=== PATIENT | female | born 1955 | race Caucasian/White ===

== ENCOUNTER 2016-10-25 04:14 | Emergency (ER) | payer OTHER ==
[2016-10-25] MEDS ORDERED: ALBUTEROL 90 MCG/ACT 8GM HFA INHALER As Ordered ONE (05:45)
[2016-10-25] MEDS ORDERED: predniSONE 20 MG TAB As Ordered ONE (05:45)
--- NOTE | 2016-10-25 06:25 | EDDOCDS ---
Physician Documentation [facility] Name: Shayy Richmond Age: 61 yrs Sex: Female : 1955 Arrival Date: 10/25/2016 Time: 04:14 Bed 10 Private MD: Disposition: 10/25/16 05:42 Discharged to Home/Self Care. Impression: Acute bronchitis. - Condition is Stable. - Discharge Instructions: Acute Bronchitis, Viral Infections. - Prescriptions for Prednisone 20 mg Oral Tablet - take 1 tablet by ORAL route once daily for 5 days; 5 tablet. - Medication Reconciliation, Local Pharmacy Hours form. - Follow up: AFSANEH Davis; When: Call to arrange an appointment; Reason: Continuance of care. - Problem is an acute exacerbation. - Symptoms have improved. Historical: - Allergies: Zithromax (Hives); - Home Meds: 1. benazepril 40 mg oral tab 1 tab once daily (Last dose: 10/24/2016) 2. hydrochlorothiazide 25 mg Oral tab 1 tab once daily (Last dose: 10/24/2016) 3. Sertraline 50 mg 150 mg daily (Last dose: 10/24/2016) 4. amlodipine 5 mg Oral tab 1 tab once daily (Last dose: 10/24/2016) 5. Claritin 10 mg Oral tab 1 tab once daily (Last dose: 10/24/2016) 6. Synthroid 125 mcg Oral tab 2 tabs once daily (Last dose: 10/24/2016) 7. Align 4 mg oral cap 1 cap daily (Last dose: 10/24/2016) 8. multivitamin Oral tab 1 tablet daily (Last dose: 10/24/2016) 9. Ambien 10 mg Oral tab 1 tab nightly (Last dose: 10/24/2016) 10. Zanaflex 4 mg Oral tab 2 tabs twice a day (Last dose: 10/24/2016) 11. Iron CR 250 mg Oral cpER daily (Last dose: 10/24/2016) 12. Calcium + Vitamin D 600 mg calcium- 200 unit Oral tab daily (Last dose: 10/24/2016) 13. tramadol 50 mg Oral tab 1 tab every 4-6 hours as needed (Last dose: Unknown) 14. Xanax 1 mg Oral tab 1 tab 3 times per day (Last dose: Unknown) 15. Propranolol Oral 1 tab as needed 16. doxycycline hyclate 100 mg Oral cap 1 cap 2 times per day (Last dose: 10/24/2016) 17. Mucinex DM 30-600 mg oral Tb12 2 tabs every 12 hours (Last dose: 10/24/2016) - PMHx: Hypertension; Anxiety; Depression; Hypothyroidism; - Social history: Smoking status: Patient states was never smoker of tobacco. No barriers to communication noted, The patient speaks fluent Taiwanese, Speaks appropriately for age. - Family history: Not pertinent. - : The pt / caregiver states he / she is not on anticoagulants. Home medication list is obtained from the patient. - Exposure Risk Screening:: None identified. Vital Signs: 10/25 04:28 BP 169 / 90; Pulse 79; Resp 22; Temp 96.3(O); Pulse Ox 92% on R/A; Weight 143.79 kg / kmg1 317 lbs (R); Height 5 ft. 6 in. (167.64 cm) (R); Pain 2/10; 06:02 BP 164 / 89; Pulse 78; Resp 18; Temp 98; Pulse Ox 97% on R/A; Pain 2/10; jp6 04:28 Body Mass Index 51.16 (143.79 kg, 167.64 cm) [facility] [place]DM: 05:00 -Influenza A&B Rapid Antigen - Nose Ordered. EDMS 05:00 Chest, 2 View (pa\E\lat) Ordered. EDMS 05:19 Financial registration complete. hs2 05:24 -Influenza A&B Rapid Antigen - Nose Reviewed. mm11 05:41 Ventolin Inhaler 2 puffs Inhalation once; [id number] prn ordered. mm11 05:41 predniSONE 20 mg PO once; administer with food or milk ordered. mm11 05:41 MDI teaching with Spacer ordered. mm11 05:58 [facility] Payment Agreement was scanned into [employer] and attached to record. hs2 Administered Medications: 05:50 Drug: Ventolin 2 puffs [Ventolin HFA 90 mcg/actuation aerosol inhaler (2 puffs)] Route: jp6 Inhalation; 05:50 Drug: predniSONE 20 mg [prednisone 20 mg tablet (1 tabs)] Route: PO; jp6 Signatures: Dispatcher [employer] EDHI Tamia Cotton RN RN [facility] Lance Ellison DO DO mm11 Maribel Mcconnell RN RN sls1 Lee Ann Lopez, Reg Reg hs2 Mariposa Segura,RN RN jp6 The chart was reviewed and I authenticate all verbal orders and agree with the evaluation and treatment provided.Attachments: 05:58 [facility] Payment Agreement hs2 KIMANID
--- NOTE | 2016-10-25 06:25 | EDDOCDS ---
Nurse's Notes [facility] Name: Shayy Richmond Age: 61 yrs Sex: Female : 1955 Arrival Date: 10/25/2016 Time: 04:14 Bed 10 Private MD: Diagnosis: Acute bronchitis Presentation: 10/25 04:17 Presenting complaint: Patient states: Persistent cough for a few days. Was seen km Wednesday morning at [place] for same. Is taking medications but feels she is not getting better. Blood in sputum in the last day or so. Suicide/Homicide risk assessment- the patient denies having any suicidal and/or homicidal ideations and does not present with any other emotional, behavioral or mental health complaints. Status: The patient is a dependent. Transition of care: patient was not received from another setting of care. 04:17 Acuity: MIMI Level 4 [facility] 04:17 Method Of Arrival: Walkin/Carried/Asstd [facility] 06:04 Adult Sepsis Screening: The patient does not have new or worsening altered mentation. jp6 Patient's respiratory rate is less than 22. Systolic blood pressure is greater than 100. Patient has a qSOFA score of 0- Negative Sepsis Screen. Triage Assessment: 04:28 General: Appears in no apparent distress, comfortable, Behavior is appropriate for age, kmg1 cooperative, pleasant. Pain: Location: right lower quadrant Aggravated by coughing. HIV screening NA for this visit Offered previously. Respiratory: Airway is patent Respiratory effort is even, unlabored, Respiratory pattern is regular, symmetrical, Reports cough that is productive, persistent blood in sputum. Historical: - Allergies: Zithromax (Hives); - Home Meds: 1. benazepril 40 mg oral tab 1 tab once daily (Last dose: 10/24/2016) 2. hydrochlorothiazide 25 mg Oral tab 1 tab once daily (Last dose: 10/24/2016) 3. Sertraline 50 mg 150 mg daily (Last dose: 10/24/2016) 4. amlodipine 5 mg Oral tab 1 tab once daily (Last dose: 10/24/2016) 5. Claritin 10 mg Oral tab 1 tab once daily (Last dose: 10/24/2016) 6. Synthroid 125 mcg Oral tab 2 tabs once daily (Last dose: 10/24/2016) 7. Align 4 mg oral cap 1 cap daily (Last dose: 10/24/2016) 8. multivitamin Oral tab 1 tablet daily (Last dose: 10/24/2016) 9. Ambien 10 mg Oral tab 1 tab nightly (Last dose: 10/24/2016) 10. Zanaflex 4 mg Oral tab 2 tabs twice a day (Last dose: 10/24/2016) 11. Iron CR 250 mg Oral cpER daily (Last dose: 10/24/2016) 12. Calcium + Vitamin D 600 mg calcium- 200 unit Oral tab daily (Last dose: 10/24/2016) 13. tramadol 50 mg Oral tab 1 tab every 4-6 hours as needed (Last dose: Unknown) 14. Xanax 1 mg Oral tab 1 tab 3 times per day (Last dose: Unknown) 15. Propranolol Oral 1 tab as needed 16. doxycycline hyclate 100 mg Oral cap 1 cap 2 times per day (Last dose: 10/24/2016) 17. Mucinex DM 30-600 mg oral Tb12 2 tabs every 12 hours (Last dose: 10/24/2016) - PMHx: Hypertension; Anxiety; Depression; Hypothyroidism; - Social history: Smoking status: Patient states was never smoker of tobacco. No barriers to communication noted, The patient speaks fluent Cypriot, Speaks appropriately for age. - Family history: Not pertinent. - : The pt / caregiver states he / she is not on anticoagulants. Home medication list is obtained from the patient. - Exposure Risk Screening:: None identified. Screenin:04 Screening information is obtained from the patient. Fall risk: No risks identified. jp6 Assistance ADL's: requires no assistance with activities of daily living. Abuse/DV Screen: The patient / caregiver reports he/she is: not in a situation that causes fear, pain or injury. Nutritional screening: No deficits noted. Advance Directives: Currently, there is no health care proxy. There is no active DNR order. There is no living will. home support is adequate. Assessment: 05:04 Reassessment: Patient appears in no apparent distress at this time. General: Appears in jp6 no apparent distress, well developed, well nourished, Behavior is appropriate for age, cooperative, pleasant. Pain: Location: abdomen Pain currently is 5 out of 10 on a pain scale. Aggravated by coughing. Neurological: No deficits noted. EENT: No deficits noted. Cardiovascular: No deficits noted. Respiratory: Airway is patent Respiratory effort is even, unlabored, Respiratory pattern is regular, symmetrical, Breath sounds are clear bilaterally. GI: No deficits noted. : No deficits noted. Derm: Skin is pink, warm & dry. Musculoskeletal: No deficits noted. 06:02 Reassessment: Patient appears in no apparent distress at this time. ready to be [facility] discharged.. Vital Signs: 04:28 BP 169 / 90; Pulse 79; Resp 22; Temp 96.3(O); Pulse Ox 92% on R/A; Weight 143.79 kg [facility] (R); Height 5 ft. 6 in. (167.64 cm) (R); Pain 2/10; 06:02 BP 164 / 89; Pulse 78; Resp 18; Temp 98; Pulse Ox 97% on R/A; Pain 2/10; jp6 04:28 Body Mass Index 51.16 (143.79 kg, 167.64 cm) [facility] Vitals: 04:28 Log In Time: October 25, 2016 at 04:16. [facility] ED Course: 04:15 Patient visited by Lee Ann Lopez Reg. hs2 04:15 Patient moved to Waiting hs2 04:19 Triage Initiated [facility] 04:32 Patient moved to 10 km 04:39 Melissa Amanda RN is Primary Nurse. kas2 04:50 Lance Ellison DO is Attending Physician. mm11 04:50 Patient visited by Lance Ellison DO. mm11 04:54 Primary Nurse role handed off by Melissa Amanda RN jp6 04:54 Mariposa Segura RN is Primary Nurse. jp6 04:59 Patient visited by Lance Ellison DO. mm11 05:04 The patient / caregiver is instructed regarding the plan of care and ED course. jp6 05:04 -Influenza A&B Rapid Antigen - Nose Sent. jp6 05:41 Ryan [facility] is Referral Physician. mm11 05:58 [facility] Payment Agreement was scanned into [employer] and attached to record. hs2 06:02 Patient name changed from Shayy\S\\S\Richmond\S\ to Shayy\S\Denise\S\Richmond. EDMS 06:02 No IV's were initiated during this patient's visit. No procedures done that require jp6 assistance. Administered Medications: 05:50 Drug: Ventolin 2 puffs [Ventolin HFA 90 mcg/actuation aerosol inhaler (2 puffs)] Route: jp6 Inhalation; 05:50 Drug: predniSONE 20 mg [prednisone 20 mg tablet (1 tabs)] Route: PO; jp6 Order Results: Lab Order: -Influenza A&B Rapid Antigen - Nose; SPEC'M 10/25/16 05:03 Test: INFLUENZA A RAPID SCR by ICA; Value: INFLUENZA A RESULTS NEGATIVE; Status: F Test: INFLUENZA A RAPID SCR by ICA; Value: Comments:; Status: F Test: INFLUENZA B RAPID SCR by ICA; Value: INFLUENZA B RESULTS NEGATIVE; Status: F Test Note: ; The Influenza test is a direct rapid immunoassay for the qualitative detection of Influenza viral antigen. Cell culture (Viral Culture) testing should be considered to confirm NEGATIVE results and to assist in detecting other viruses that can provide similar clinical symptoms. Please contact the lab within 24 hours ([phone]) if confirmatory testing is desired. Outcome: 05:42 Discharge ordered by Provider. mm11 06:02 Discharge Assessment: Patient awake, alert and oriented x 3. No cognitive and/or jp6 functional deficits noted. Patient verbalized understanding of disposition instructions. patient administered narcotics - no. The following High Risk Discharge criteria are identified: None. Discharged to home ambulatory. Condition: good. Discharge instructions given to patient, Instructed on discharge instructions, follow up and referral plans. medication usage, Demonstrated understanding of instructions, medications, Pt was receptive of discharge instructions/ teaching. Prescriptions given X 1. No special radiology studies were completed. Property :Personal belongings accompany Pt. 06:24 Patient left the ED. sls1 Signatures: Dispatcher [employer] EDMS Tamia Cotton RN RN kmg1 Lance Ellison, DO mm11 Maribel Mcconnell RN RN sls1 Lee Ann Lopez, Reg Reg hs2 Melissa Amanda RN RN kas2 Mariposa Segura RN RN jp6 MTDD
--- NOTE | 2016-10-26 11:09 | REP ---
PA and lateral chest: Comparison is 06/02 2006. The lung esquivel are clear. The cardiac size is normal The ijeoma, mediastinum, and bony thorax are unremarkable. Impression: Negative PA and lateral chest. There is no interval change Signed by Reji Knapp MD 10/25/2016 08:55 A
--- NOTE | 2016-10-27 07:25 | EDDOCDS ---
Physician Documentation [facility] Name: Shayy Richmond Age: 61 yrs Sex: Female : 1955 Arrival Date: 10/25/2016 Time: 04:14 Bed 10 Private MD: Disposition: 10/25/16 05:42 Discharged to Home/Self Care. Impression: Acute bronchitis. - Condition is Stable. - Discharge Instructions: Acute Bronchitis, Viral Infections. - Prescriptions for Prednisone 20 mg Oral Tablet - take 1 tablet by ORAL route once daily for 5 days; 5 tablet. - Medication Reconciliation, Local Pharmacy Hours form. - Follow up: AFSANEH Davis; When: Call to arrange an appointment; Reason: Continuance of care. - Problem is an acute exacerbation. - Symptoms have improved. Historical: - Allergies: Zithromax (Hives); - Home Meds: 1. benazepril 40 mg oral tab 1 tab once daily (Last dose: 10/24/2016) 2. hydrochlorothiazide 25 mg Oral tab 1 tab once daily (Last dose: 10/24/2016) 3. Sertraline 50 mg 150 mg daily (Last dose: 10/24/2016) 4. amlodipine 5 mg Oral tab 1 tab once daily (Last dose: 10/24/2016) 5. Claritin 10 mg Oral tab 1 tab once daily (Last dose: 10/24/2016) 6. Synthroid 125 mcg Oral tab 2 tabs once daily (Last dose: 10/24/2016) 7. Align 4 mg oral cap 1 cap daily (Last dose: 10/24/2016) 8. multivitamin Oral tab 1 tablet daily (Last dose: 10/24/2016) 9. Ambien 10 mg Oral tab 1 tab nightly (Last dose: 10/24/2016) 10. Zanaflex 4 mg Oral tab 2 tabs twice a day (Last dose: 10/24/2016) 11. Iron CR 250 mg Oral cpER daily (Last dose: 10/24/2016) 12. Calcium + Vitamin D 600 mg calcium- 200 unit Oral tab daily (Last dose: 10/24/2016) 13. tramadol 50 mg Oral tab 1 tab every 4-6 hours as needed (Last dose: Unknown) 14. Xanax 1 mg Oral tab 1 tab 3 times per day (Last dose: Unknown) 15. Propranolol Oral 1 tab as needed 16. doxycycline hyclate 100 mg Oral cap 1 cap 2 times per day (Last dose: 10/24/2016) 17. Mucinex DM 30-600 mg oral Tb12 2 tabs every 12 hours (Last dose: 10/24/2016) - PMHx: Hypertension; Anxiety; Depression; Hypothyroidism; - Social history: Smoking status: Patient states was never smoker of tobacco. No barriers to communication noted, The patient speaks fluent Chinese, Speaks appropriately for age. - Family history: Not pertinent. - : The pt / caregiver states he / she is not on anticoagulants. Home medication list is obtained from the patient. - Exposure Risk Screening:: None identified. Vital Signs: 10/25 04:28 BP 169 / 90; Pulse 79; Resp 22; Temp 96.3(O); Pulse Ox 92% on R/A; Weight 143.79 kg / kmg1 317 lbs (R); Height 5 ft. 6 in. (167.64 cm) (R); Pain 2/10; 06:02 BP 164 / 89; Pulse 78; Resp 18; Temp 98; Pulse Ox 97% on R/A; Pain 2/10; jp6 04:28 Body Mass Index 51.16 (143.79 kg, 167.64 cm) kmg1 MDM: 05:00 -Influenza A&B Rapid Antigen - Nose Ordered. EDMS 05:00 Chest, 2 View (pa\E\lat) Ordered. EDMS 05:19 Financial registration complete. hs2 05:24 -Influenza A&B Rapid Antigen - Nose Reviewed. mm11 05:41 Ventolin Inhaler 2 puffs Inhalation once; [id number] prn ordered. mm11 05:41 predniSONE 20 mg PO once; administer with food or milk ordered. mm11 05:41 MDI teaching with Spacer ordered. mm11 05:58 [facility] Payment Agreement was scanned into [employer] and attached to record. hs2 20:10 T-Sheet-- Draft Copy was scanned into [employer] and attached to record. klr Administered Medications: 05:50 Drug: Ventolin 2 puffs [Ventolin HFA 90 mcg/actuation aerosol inhaler (2 puffs)] Route: jp6 Inhalation; 05:50 Drug: predniSONE 20 mg [prednisone 20 mg tablet (1 tabs)] Route: PO; jp6 Signatures: Dispatcher [employer] Tamia Farias, RN RN kmg1 Lance Ellison, DO DO mm11 Maribel Mcconnell, RN RN sls1 Lee Ann Lopez, Reg Reg hs2 Mariposa Segura,RN RN jp6 Drea Gonzalez The chart was reviewed and I authenticate all verbal orders and agree with the evaluation and treatment provided.Attachments: 05:58 [facility] Payment Agreement hs2 20:10 T-Sheet-- Draft Copy klr Chart Complete MTDD
--- NOTE | 2016-10-27 07:25 | EDDOCDS ---
Nurse's Notes [facility] Name: Shayy Richmond Age: 61 yrs Sex: Female : 1955 Arrival Date: 10/25/2016 Time: 04:14 Bed 10 Private MD: Diagnosis: Acute bronchitis Presentation: 10/25 04:17 Presenting complaint: Patient states: Persistent cough for a few days. Was seen km Wednesday morning at [place] for same. Is taking medications but feels she is not getting better. Blood in sputum in the last day or so. Suicide/Homicide risk assessment- the patient denies having any suicidal and/or homicidal ideations and does not present with any other emotional, behavioral or mental health complaints. Status: The patient is a dependent. Transition of care: patient was not received from another setting of care. 04:17 Acuity: MIMI Level 4 [facility] [place] 04:17 Method Of Arrival: Walkin/Carried/Asstd [facility] [place] 06:04 Adult Sepsis Screening: The patient does not have new or worsening altered mentation. jp6 Patient's respiratory rate is less than 22. Systolic blood pressure is greater than 100. Patient has a qSOFA score of 0- Negative Sepsis Screen. Triage Assessment: 04:28 General: Appears in no apparent distress, comfortable, Behavior is appropriate for age, kmg1 cooperative, pleasant. Pain: Location: right lower quadrant Aggravated by coughing. HIV screening NA for this visit Offered previously. Respiratory: Airway is patent Respiratory effort is even, unlabored, Respiratory pattern is regular, symmetrical, Reports cough that is productive, persistent blood in sputum. Historical: - Allergies: Zithromax (Hives); - Home Meds: 1. benazepril 40 mg oral tab 1 tab once daily (Last dose: 10/24/2016) 2. hydrochlorothiazide 25 mg Oral tab 1 tab once daily (Last dose: 10/24/2016) 3. Sertraline 50 mg 150 mg daily (Last dose: 10/24/2016) 4. amlodipine 5 mg Oral tab 1 tab once daily (Last dose: 10/24/2016) 5. Claritin 10 mg Oral tab 1 tab once daily (Last dose: 10/24/2016) 6. Synthroid 125 mcg Oral tab 2 tabs once daily (Last dose: 10/24/2016) 7. Align 4 mg oral cap 1 cap daily (Last dose: 10/24/2016) 8. multivitamin Oral tab 1 tablet daily (Last dose: 10/24/2016) 9. Ambien 10 mg Oral tab 1 tab nightly (Last dose: 10/24/2016) 10. Zanaflex 4 mg Oral tab 2 tabs twice a day (Last dose: 10/24/2016) 11. Iron CR 250 mg Oral cpER daily (Last dose: 10/24/2016) 12. Calcium + Vitamin D 600 mg calcium- 200 unit Oral tab daily (Last dose: 10/24/2016) 13. tramadol 50 mg Oral tab 1 tab every 4-6 hours as needed (Last dose: Unknown) 14. Xanax 1 mg Oral tab 1 tab 3 times per day (Last dose: Unknown) 15. Propranolol Oral 1 tab as needed 16. doxycycline hyclate 100 mg Oral cap 1 cap 2 times per day (Last dose: 10/24/2016) 17. Mucinex DM 30-600 mg oral Tb12 2 tabs every 12 hours (Last dose: 10/24/2016) - PMHx: Hypertension; Anxiety; Depression; Hypothyroidism; - Social history: Smoking status: Patient states was never smoker of tobacco. No barriers to communication noted, The patient speaks fluent [place]orese, Speaks appropriately for age. - Family history: Not pertinent. - : The pt / caregiver states he / she is not on anticoagulants. Home medication list is obtained from the patient. - Exposure Risk Screening:: None identified. Screenin:04 Screening information is obtained from the patient. Fall risk: No risks identified. jp6 Assistance ADL's: requires no assistance with activities of daily living. Abuse/DV Screen: The patient / caregiver reports he/she is: not in a situation that causes fear, pain or injury. Nutritional screening: No deficits noted. Advance Directives: Currently, there is no health care proxy. There is no active DNR order. There is no living will. home support is adequate. Assessment: 05:04 Reassessment: Patient appears in no apparent distress at this time. General: Appears in jp6 no apparent distress, well developed, well nourished, Behavior is appropriate for age, cooperative, pleasant. Pain: Location: abdomen Pain currently is 5 out of 10 on a pain scale. Aggravated by coughing. Neurological: No deficits noted. EENT: No deficits noted. Cardiovascular: No deficits noted. Respiratory: Airway is patent Respiratory effort is even, unlabored, Respiratory pattern is regular, symmetrical, Breath sounds are clear bilaterally. GI: No deficits noted. : No deficits noted. Derm: Skin is pink, warm & dry. Musculoskeletal: No deficits noted. 06:02 Reassessment: Patient appears in no apparent distress at this time. ready to be [facility] discharged.. Vital Signs: 04:28 BP 169 / 90; Pulse 79; Resp 22; Temp 96.3(O); Pulse Ox 92% on R/A; Weight 143.79 kg [facility] [place] (R); Height 5 ft. 6 in. (167.64 cm) (R); Pain 2/10; 06:02 BP 164 / 89; Pulse 78; Resp 18; Temp 98; Pulse Ox 97% on R/A; Pain 2/10; jp6 04:28 Body Mass Index 51.16 (143.79 kg, 167.64 cm) [facility] [place] Vitals: 04:28 Log In Time: October 25, 2016 at 04:16. [facility] [place] ED Course: 04:15 Patient visited by Lee Ann Lopez Reg. hs2 04:15 Patient moved to Waiting hs2 04:19 Triage Initiated [facility] [place] 04:32 Patient moved to 10 km 04:39 Melissa Amanda RN is Primary Nurse. kas2 04:50 Lance Ellison DO is Attending Physician. mm11 04:50 Patient visited by Lance Ellison DO. mm11 04:54 Primary Nurse role handed off by Melissa Amanda RN jp6 04:54 Mariposa Segura RN is Primary Nurse. jp6 04:59 Patient visited by Lance Ellison DO. mm11 05:04 The patient / caregiver is instructed regarding the plan of care and ED course. jp6 05:04 -Influenza A&B Rapid Antigen - Nose Sent. jp6 05:41 Ryan [facility] is Referral Physician. mm11 05:58 [facility] Payment Agreement was scanned into [employer] and attached to record. hs2 06:02 Patient name changed from Shayy\S\\S\Richmond\S\ to Shayy\S\Denise\S\Richmond. EDMS 06:02 No IV's were initiated during this patient's visit. No procedures done that require jp6 assistance. 20:10 T-Sheet-- Draft Copy was scanned into [employer] and attached to record. klr 10/26 11:19 Chest, 2 View (pa\E\lat) Returned. EDMS Administered Medications: 10/25 05:50 Drug: Ventolin 2 puffs [Ventolin HFA 90 mcg/actuation aerosol inhaler (2 puffs)] Route: jp6 Inhalation; 05:50 Drug: predniSONE 20 mg [prednisone 20 mg tablet (1 tabs)] Route: PO; jp6 Order Results: Lab Order: -Influenza A&B Rapid Antigen - Nose; SPEC'M 10/25/16 05:03 Test: INFLUENZA A RAPID SCR by ICA; Value: INFLUENZA A RESULTS NEGATIVE; Status: F Test: INFLUENZA A RAPID SCR by ICA; Value: Comments:; Status: F Test: INFLUENZA B RAPID SCR by ICA; Value: INFLUENZA B RESULTS NEGATIVE; Status: F Test Note: ; The Influenza test is a direct rapid immunoassay for the qualitative detection of Influenza viral antigen. Cell culture (Viral Culture) testing should be considered to confirm NEGATIVE results and to assist in detecting other viruses that can provide similar clinical symptoms. Please contact the lab within 24 hours ([phone]) if confirmatory testing is desired. Radiology Order: Chest, 2 View (pa\E\lat) Test: Chest, 2 View (pa\E\lat) REASON FOR EXAMINATION: Cough; PA and lateral chest:; ; Comparison is 06/02 2006.; ; The lung rich[place] are clear. The cardiac size is normal; ; The ijeoma, mediastinum, and bony thorax are unremarkable.; ; Impression:; ; Negative PA and lateral chest. There is no interval change; ; ; Signed by; Reji Knapp MD 10/25/2016 08:55 A; Outcome: 05:42 Discharge ordered by Provider. mm11 06:02 Discharge Assessment: Patient awake, alert and oriented x 3. No cognitive and/or jp6 functional deficits noted. Patient verbalized understanding of disposition instructions. patient administered narcotics - no. The following High Risk Discharge criteria are identified: None. Discharged to home ambulatory. Condition: good. Discharge instructions given to patient, Instructed on discharge instructions, follow up and referral plans. medication usage, Demonstrated understanding of instructions, medications, Pt was receptive of discharge instructions/ teaching. Prescriptions given X 1. No special radiology studies were completed. Property :Personal belongings accompany Pt. 06:24 Patient left the ED. sls1 Signatures: Dispatcher [employer] EDTamia Welsh, RN RN kmg1 Lance Ellison, DO DO mm11 Maribel Mcconnell RN RN sls1 Lee Ann Lopez, Reg Reg hs2 Melissa AmandaRN RN kas2 Mariposa Segura RN RN [email or web address] Drea Gonzalez Chart Complete MTDD
--- NOTE | 2016-10-27 07:25 | EDDOCDS ---
Physician Documentation [facility] Name: Shayy Richmond Age: 61 yrs Sex: Female : 1955 Arrival Date: 10/25/2016 Time: 04:14 Bed 10 Private MD: Disposition: 10/25/16 05:42 Discharged to Home/Self Care. Impression: Acute bronchitis. - Condition is Stable. - Discharge Instructions: Acute Bronchitis, Viral Infections. - Prescriptions for Prednisone 20 mg Oral Tablet - take 1 tablet by ORAL route once daily for 5 days; 5 tablet. - Medication Reconciliation, Local Pharmacy Hours form. - Follow up: AFSANEH Davis; When: Call to arrange an appointment; Reason: Continuance of care. - Problem is an acute exacerbation. - Symptoms have improved. Historical: - Allergies: Zithromax (Hives); - Home Meds: 1. benazepril 40 mg oral tab 1 tab once daily (Last dose: 10/24/2016) 2. hydrochlorothiazide 25 mg Oral tab 1 tab once daily (Last dose: 10/24/2016) 3. Sertraline 50 mg 150 mg daily (Last dose: 10/24/2016) 4. amlodipine 5 mg Oral tab 1 tab once daily (Last dose: 10/24/2016) 5. Claritin 10 mg Oral tab 1 tab once daily (Last dose: 10/24/2016) 6. Synthroid 125 mcg Oral tab 2 tabs once daily (Last dose: 10/24/2016) 7. Align 4 mg oral cap 1 cap daily (Last dose: 10/24/2016) 8. multivitamin Oral tab 1 tablet daily (Last dose: 10/24/2016) 9. Ambien 10 mg Oral tab 1 tab nightly (Last dose: 10/24/2016) 10. Zanaflex 4 mg Oral tab 2 tabs twice a day (Last dose: 10/24/2016) 11. Iron CR 250 mg Oral cpER daily (Last dose: 10/24/2016) 12. Calcium + Vitamin D 600 mg calcium- 200 unit Oral tab daily (Last dose: 10/24/2016) 13. tramadol 50 mg Oral tab 1 tab every 4-6 hours as needed (Last dose: Unknown) 14. Xanax 1 mg Oral tab 1 tab 3 times per day (Last dose: Unknown) 15. Propranolol Oral 1 tab as needed 16. doxycycline hyclate 100 mg Oral cap 1 cap 2 times per day (Last dose: 10/24/2016) 17. Mucinex DM 30-600 mg oral Tb12 2 tabs every 12 hours (Last dose: 10/24/2016) - PMHx: Hypertension; Anxiety; Depression; Hypothyroidism; - Social history: Smoking status: Patient states was never smoker of tobacco. No barriers to communication noted, The patient speaks fluent Maldivian, Speaks appropriately for age. - Family history: Not pertinent. - : The pt / caregiver states he / she is not on anticoagulants. Home medication list is obtained from the patient. - Exposure Risk Screening:: None identified. Vital Signs: 10/25 04:28 BP 169 / 90; Pulse 79; Resp 22; Temp 96.3(O); Pulse Ox 92% on R/A; Weight 143.79 kg / kmg1 317 lbs (R); Height 5 ft. 6 in. (167.64 cm) (R); Pain 2/10; 06:02 BP 164 / 89; Pulse 78; Resp 18; Temp 98; Pulse Ox 97% on R/A; Pain 2/10; jp6 04:28 Body Mass Index 51.16 (143.79 kg, 167.64 cm) kmg1 MDM: 05:00 -Influenza A&B Rapid Antigen - Nose Ordered. EDMS 05:00 Chest, 2 View (pa\E\lat) Ordered. EDMS 05:19 Financial registration complete. hs2 05:24 -Influenza A&B Rapid Antigen - Nose Reviewed. mm11 05:41 Ventolin Inhaler 2 puffs Inhalation once; [id number] prn ordered. mm11 05:41 predniSONE 20 mg PO once; administer with food or milk ordered. mm11 05:41 MDI teaching with Spacer ordered. mm11 05:58 REPLACED BY [facility] Payment Agreement was scanned into [employer] and attached to record. hs2 20:10 T-Sheet-- Draft Copy was scanned into [employer] and attached to record. klr Administered Medications: 05:50 Drug: Ventolin 2 puffs [Ventolin HFA 90 mcg/actuation aerosol inhaler (2 puffs)] Route: jp6 Inhalation; 05:50 Drug: predniSONE 20 mg [prednisone 20 mg tablet (1 tabs)] Route: PO; jp6 Signatures: Dispatcher [employer] Tamia Farias, RN RN kmg1 Lance Ellison, DO DO mm11 Maribel Mcconnell, RN RN sls1 Lee Ann Lopez, Reg Reg hs2 Mariposa Segura,RN RN jp6 Drea Gonzalez The chart was reviewed and I authenticate all verbal orders and agree with the evaluation and treatment provided.Attachments: 05:58 REPLACED BY [facility] Payment Agreement hs2 20:10 T-Sheet-- Draft Copy klr Chart Complete MTDD
== END 2016-10-25 06:45 | disposition home or self-care (01) ==
LOC: M ED 04:14
DX: J20.9 Acute bronchitis, unspecified (principal); I10 Essential (primary) hypertension; E03.9 Hypothyroidism, unspecified; F32.9 Major depressive disorder, single episode, unspecified; F41.9 Anxiety disorder, unspecified; Z79.899 Other long term (current) drug therapy; Z88.1 Allergy status to other antibiotic agents

== ENCOUNTER → 2017-01-15 | Outpatient (CLI) | payer OTHER ==
[~2017-01-15] MED LIST: ISOVUE-370 76% 100ML VIAL (Q9967) As Ordered ONE
--- NOTE | 2017-01-15 09:30 | REP ---
[facility] with attention to the kidneys: Imaging of the abdomen to the iliac crests is performed prior to IV contrast. Imaging of the abdomen to the to the iliac crests is performed during the arterial phase of IV contrast enhancement. This is followed by imaging of the abdomen and pelvis from the diaphragms to the pubic symphysis during the portal venous phase of IV contrast enhancement. This is followed by delayed equilibrium phase scanning from the diaphragms to the iliac crests. from an outside facility on 01/05/2017 identified a 6.7 cm left renal cyst. Images from the ultrasound study are not available. The visualized lung esquivel are unremarkable. The hepatic parenchyma is homogeneous on all phases of the study. The the patient has a cholecystectomy. There has been bariatric surgery. There are a few small calcifications in the pancreatic head, this may be sequela from prior pancreatitis. The pancreas is otherwise unremarkable on the study today. The spleen is enlarged. Splenic parenchyma is homogeneous on all phases of the study. The adrenals are normal size and mobile. The right kidney is unremarkable. There are no right renal calculi, masses or cysts. There is no right hydronephrosis. There is a large parapelvic cyst in the mid and lower pole of the left kidney maximally measuring 7.[address] There is no left renal calculus, solid mass or hydronephrosis. There is no perinephric stranding on the right on the left. The abdominal aorta is unremarkable. There is no bowel distension. The mesentery is unremarkable. There is a fat-containing umbilical hernia with the peritoneal defect measuring 1.8 cm and the hernia sac measuring 4.2 cm. Pelvis: The bladder is unremarkable. The uterus, adnexa and urinary bladder are unremarkable. A few phleboliths are incidentally noted. The appendix is unremarkable. There is no ascites or adenopathy. The pelvic bowel loops are unremarkable. Impression: 7.1 cm left renal parapelvic cyst. Fat containing umbilical hernia. Splenomegaly. Bariatric surgery. Cholecystectomy. Small calcifications in the pancreatic head is suggestive of prior pancreatitis. Pancreas is otherwise unremarkable on the CT study today. Signed by Reji Knapp MD 01/15/2017 09:21 A
== END ==
LOC: M RAD 07:42
PROVIDERS: ATTEND Family Medicine
DX: N28.1 Cyst of kidney, acquired (principal); K42.9 Umbilical hernia without obstruction or gangrene
CPT/HCPCS: 71260; 74178; Q9967